=== PATIENT | female | born 1955 | race Caucasian/White ===

== ENCOUNTER 2017-05-10 09:04 | Day surgery (SDC) | payer OTHER ==
[2017-05-10] VITALS (13 sets, daily range): BP systolic 108–155; BP diastolic 50–70; PULSE 66–90; RESP 10–22; Ht 167.6 cm; Wt 135.1 kg
[~2017-05-10] VITALS: Ht 167.6 cm; Wt 135.1 kg
[~2017-05-10 09:04] MED LIST: CEFAZOLIN 1 GM/50 ML (PMX) 50 ML IVPB SCH; LEVO150T67 PO; [UNRECOGNIZED DRUG - REMARK]
[2017-05-10 10:04] LABS: ADD SCAN DIFF NO
[2017-05-10] MEDS ORDERED: LEVO150T67 PO (10:08)
[2017-05-10 10:10] LABS: BASOPHILS % 0.6 % (0.0-2.0); EOSINOPHILS # 0.3 10^3/ul (0.0-0.5); EOSINOPHILS % 4.2 % (0.0-7.0); HEMATOCRIT 34.6 % (37.0-47.0); HEMOGLOBIN 11.8 g/dl (12.0-16.0); LYMPHOCYTES # 1.4 10^3/ul (0.8-2.9); LYMPHOCYTES % 19.9 % (15.0-51.0); MEAN CORPUSCULAR HEMOGLOBIN 32.2 pg (29.0-33.0); MEAN CORPUSCULAR HGB CONC 34.1 g/dl (32.0-37.0); MEAN CORPUSCULAR VOLUME 94.5 fl (82.0-101.0); MEAN PLATELET VOLUME 9.3 fl (7.4-10.4); MONOCYTE # 0.3 10^3/ul (0.3-0.9); MONOCYTES % 4.5 % (0.0-11.0); NEUTROPHILS % 70.4 % (39.0-77.0); PLATELET COUNT 211 10^3/UL (140-415); RED BLOOD COUNT 3.66 10^6/ul (4.20-5.40); RED CELL DISTRIBUTION WIDTH 13.3 % (11.5-14.5); WHITE BLOOD COUNT 7.1 10^3/ul (4.8-10.8)
[2017-05-10] MEDS ORDERED: DULO60CA6 PO (10:14)
[2017-05-10] MEDS ORDERED: GABA-526 PO (10:14)
[2017-05-10] MEDS ORDERED: DULO30CA45 PO (10:14)
[2017-05-10] MEDS ORDERED: CLON0.5T4 PO (10:15)
[2017-05-10] MEDS ORDERED: TRAM-40 PO (10:16)
[2017-05-10] MEDS ORDERED: TRAZ100T15 PO (10:16)
[2017-05-10] MEDS ORDERED: MULTI PO (10:16)
[2017-05-10] MEDS ORDERED: OXYB5TAB7 PO (10:16)
[2017-05-10] MEDS ORDERED: CHOL100062 PO (10:17)
[2017-05-10] MEDS ORDERED: MELA1TAB15 PO (10:17)
[2017-05-10] MEDS ORDERED: LACT1CAP47 PO (10:17)
[2017-05-10 10:36] LABS: INR 0.94; PROTIME 12.6 Sec (12.2-14.2)
[2017-05-10 10:37] LABS: PARTIAL THROMBOPLASTIN TIME 31.5 Sec (25.0-35.0)
[2017-05-10 10:43] LABS: ALBUMIN 4.5 g/dl (3.3-4.9); ALBUMIN/GLOBULIN RATIO 1.8; BILIRUBIN,INDIRECT 0.1 mg/dl (0-1.1); BILIRUBIN,TOTAL 0.1 mg/dl (0.2-1.3)
[2017-05-10 10:50] LABS: POTASSIUM 3.8 mmol/L (3.5-5.1)
[2017-05-10 10:51] LABS: CALCIUM 9.3 mg/dl (8.4-10.2); CREATININE 0.86 mg/dl (0.44-1.00)
[2017-05-10] MEDS ORDERED: IOHEXOL 300MG/ML 30 ML BTL ONE (12:24)
--- NOTE | 2017-05-10 12:41 | HP ---
DATE OF ADMISSION: 05/10/2017 HISTORY OF PRESENT ILLNESS: Joan Vang is a 61-year-old female who noted gross hematuria. The p atvania subsequently underwent a CT scan of the abdomen and pelvis in February which demonstrated a 6 mm and 4 mm stone in the distal left ureter. A ureteral stent was then inserted on an emergency basis . Subsequently, the patient presented to our office for definitive treatment. The patient now pres ents for cystoscopy, removal of left ureteral stent, left ureteroscopy with endoscopic holmium laser lithotripsy, reinsertion of left ureteral stent. PAST MEDICAL HISTORY: Morbid obesity, goiter, depression, fibromyalgia, hypothyroidism and anemia. PAST SURGICAL HISTORY: Status post insertion of left ureteral stent. ALLERGIES: NONE. MEDICATIONS: 1. Gabapentin. 2. Levothyroxine. 3. Cymbalta. 4. Clonazepam. 3. Trazodone. 4. Tramadol. 5. Oxybutynin. PHYSICAL EXAMINATION: GENERAL: Morbidly obese female. LUNGS: Good breath sounds bilaterally. HEART: Regular rate and rhythm. ABDOMEN: Soft, nondistended, nontender without masses. BACK: No CVA tenderness. No masses. IMPRESSION: A 3 and 7 mm distal left ureteral calculi, status post insertion of stent now presents for exchange of this and ureteroscopic stone extraction with endoscopic laser lithotripsy. She has been cleared by hematology and cardiology. How the procedure is performed as well as potential risk s and complications and staged intervention has been reviewed previously as well as today with the p atvania and . The potential complications including anesthetic risks including DVT, PE, AL, s troke as well as an increased risk due to her morbid obesity was discussed, but potential complicati ons associated with the surgery in and of itself including inability to remove the stone, encrustati on of the stent, infection, bleeding, staged intervention, ureteral disruption, ureteral perforation , migration of stone, requiring secondary procedure and the importance of removal of the stent withi n a timely period of time (3 months) so as to avoid complications and encrustation have all been rev iewed. They are aware of the above and would like to proceed. All questions have been answered. Dictated By: ANJELICA OJEDA/NTS Conf#: [id number] DID#: [id number]
[2017-05-10] MEDS ORDERED: MIDAZOLAM 1 MG/ML 2 ML INJ ONE (12:52)
[2017-05-10] MEDS ORDERED: PROPOFOL 20 ML ONE (13:52)
[2017-05-10] MEDS ORDERED: LIDOCAINE 2% (SDV) 5 ML INJ ONE (13:52)
[2017-05-10] MEDS ORDERED: CEFAZOLIN 1 GM INJ ONE (13:52)
[2017-05-10] MEDS ORDERED: METOCLOPRAMIDE 10 MG INJ ONE (13:53)
[2017-05-10] MEDS ORDERED: ONDANSETRON 4 MG INJ ONE (13:53)
[2017-05-10] MEDS ORDERED: ONDANSETRON 4 MG INJ IV PRN (14:00)
[2017-05-10] MEDS ORDERED: FENTAnyl 50 MCG/ML VIAL IV PRN (14:00)
[2017-05-10] MEDS ORDERED: MEPERIDINE 25 MG INJ IV PRN (14:00)
--- NOTE | 2017-05-10 14:07 | PDOCDIS ---
Discharge Instructions CONDITION Patient Condition: Good HOME CARE INSTRUCTIONS: Diet Instructions: Regular ACTIVITY: Activity Restrictions: Slowly Increase Activity FOLLOW UP/APPOINTMENTS Appointments 1 -2 weeks for emoval of stent, patient to call for date and time REFERRALS Other Referrals dc to home when awake and stable, does not need to void before dc SCHOOL/WORK RELEASE May return to School/Work on: May 24, 2017 ANJELICA MEHTA May 10, 2017 14:07
--- NOTE | 2017-05-10 14:31 | OPR ---
DATE OF OPERATION: 05/10/2017 BRIEF HISTORY: Joan Vang is a 61-year-old female who presented with a ureteral stent secondary to two obstructing distal ureteral calculi. She presented today for exchange of left ureteral stent , ureteroscopic stone extraction. PREOPERATIVE DIAGNOSIS: Left ureteral stone. POSTOPERATIVE DIAGNOSIS: Two distal left ureteral stones. OPERATION PERFORMED: Removal of left ureteral stent, left retrograde pyelogram, ureteroscopic stone extraction with endoscopic holmium laser lithotripsy, reinsertion left ureteral stent. SURGEON: Anjelica Pop MD FINDINGS: Impacted distal left ureteral stone, encrusted distal stent. BLOOD USAGE: None. DRAINS: A 24 cm 6-Iraqi double-J ureteral stent. ESTIMATED BLOOD LOSS: Negligible. SPECIMEN: Stone. COMPLICATIONS: None. ANESTHESIA: General. DESCRIPTION OF PROCEDURE: The patient was brought into the operating room and placed on the operati ng room table in a gentle fashion. Of note, the patient is markedly morbidly obese. She was preppe d and draped in the usual fashion with sequential compression devices being applied. Appropriate pr essure points were padded, and she received 2 grams of Ancef preoperatively. The patient states floyd t she has multiple allergies and no allergy to penicillin products. A KUB was obtained which demons trated the previously placed stent to be in proper anatomical position. Poor visualization with flu oroscopy was noted secondary to morbid obesity. Rigid cystoscopy was undertaken with a 12-degree, 3 0-degree lens. Protruding from the left ureteral orifice was an encrusted stent. No other abnormal ities could be appreciated. The stent was brought up to the introitus of the vagina, and then the d istal aspect of the stent was cut which then allowed for a 0.35 Amplatz wire to be placed up to the level of the renal pelvis. A retrograde pyelogram was undertaken. Poor visualization of the distal ureter was noted. Possible left lower pole stone is appreciated. Contrast was noted to be instill ed and preserved in the collecting system. Due to the above findings and the patient's history, ure teroscopy was undertaken without any difficulty. The semirigid ureteroscope was inserted into the d istal ureter where 2 impacted stones were identified, fragmented with a 365 micron holmium fiber, an d then the fragments were removed with a nitinol tipless 1.9 Iraqi basket. This was repetitively p erformed until no further stone burden could be appreciated. Repeat ureteroscopy was undertaken wit h the ureteroscopy being taken proximal to this region revealing no further stone burden could be no tabatha. Due to edema, a 24 cm 6-Iraqi double-J ureteral stent was inserted. The proximal aspect coiling wi thin the renal pelvis and the distal aspect coiling within the bladder. Tied to the distal end was at a tapered string. The positioning was confirmed with direct vision fluoroscopy and a KUB. Her b ladder was emptied, and she was transferred to recovery room in stable condition. Due to the patien t's history and above findings, she will be placed on antibiotic therapy. She was given a prescript ion for Augmentin 500 mg p.o. b.i.d. for 5 days' time, dispense #10. She will follow up in the off ce in 1 to 2 weeks for a cystoscopy and stent removal. Of note, the patient is on tramadol. Should she require additional pain control, we will consult with her prescribing physician. All questions have been answered to her and her significant other. Dictated By: ANJELICA OJEDA/NTS Conf#: [id number] DID#: [id number]
--- NOTE | 2017-05-11 15:44 | RADRPT ---
PROCEDURE: Intraoperative imaging of the abdomen and pelvis with fluoroscopy. CLINICAL INDICATION: Abdominal pain. Intraoperative. TECHNIQUE: 3 images of the abdomen and pelvis were obtained in the operating room with an image in tensifier. No radiologist was in attendance. 0.2 minutes of fluoroscopy time was used. COMPARISON: No prior study is available for comparison. FINDINGS: Images demonstrate contrast in the left renal pelvis and a double pigtail left ureteral stent in sat isfactory position. IMPRESSION: 1. Satisfactory intraoperative imaging of the abdomen and pelvis. RPTAT: QQ .Silas Clinton MD, MD Date Time Electronically viewed and signed by .Silas Clinton MD, MD on 05/11/2017 15:44 .R/
== END 2017-05-10 17:19 | disposition home or self-care (01) ==
LOC: SDS 09:04
PROVIDERS: ATTEND Urology
DX: N20.0 Calculus of kidney (principal); I10 Essential (primary) hypertension; E66.01 Morbid (severe) obesity due to excess calories; Z68.42 Body mass index [BMI] 45.0-49.9, adult
CPT/HCPCS: 52356; 74420; 80053; 85025; 85610; 85651; 85730; 88300; J0690; J2250; J2405; J2765; J3010; Q9967; Z7512; Z7610

== ENCOUNTER 2017-07-26 17:50 | Emergency (ER) | payer OTHER ==
[~2017-07-26] VITALS: Ht 167.6 cm; Wt 134.0 kg
[~2017-07-26 17:50] MED LIST changes: -CEFAZOLIN 1 GM/50 ML (PMX) 50 ML IVPB SCH; +CHOL100062 PO; +CLON0.5T4 PO; +DULO30CA45 PO; +DULO60CA6 PO; +GABA-526 PO; +LACT1CAP47 PO; +MELA1TAB15 PO; +MULTI PO; +OXYB5TAB7 PO; +TRAM-40 PO; +TRAZ100T15 PO; -[UNRECOGNIZED DRUG - REMARK]
[2017-07-26 17:54] VITALS: Ht 167.6 cm; Wt 134.0 kg
--- NOTE | 2017-07-26 19:18 | ERD ---
ER Documentation Chief Complaint Date/Time DATE: 07/26/17 TIME: 19:15 Chief Complaint SENT BY PMD TO R/O DVT R LOWER LEG AND KNEE SWELLING HPI Patient is a 62-year-old female who presents with gradual onset, constant, mild to moderate right medial leg swelling for 1 week. She states that she has not had any trauma and that she has no pain in her leg. She feels that the swelling is just superior to her right medial knee. She also notes a discoloration to a patch of skin on the medial right calf that gets darker over the course of the day. She went to see her PMD and was sent to the ER to rule out DVT. ROS All systems reviewed and are negative except as per history of present illness. Medications Home Meds Reported Medications Melatonin (Melatonin) 1 Mg Tablet, 6 MG PO HS, TAB 05/10/17 Lactobacillus Acidophilus (Probiotic) 1 Each Capsule, 1 CAP PO DAILY, CAP 05/10/17 Cholecalciferol* (Vitamin D3*) 1,000 Unit Tablet, 1000 UNIT PO DAILY, TAB 05/10/17 Multivitamins* (Theragran*) 1 Tab Tab, 1 TAB PO DAILY, TAB 05/10/17 Oxybutynin Chloride* (Ditropan*) 5 Mg Tablet, 5 MG PO DAILY, TAB 05/10/17 Tramadol Hcl* (Ultram*) 50 Mg Tablet, 50 MG PO DAILY Y for PAIN, TAB 05/10/17 Trazodone Hcl* (Trazodone Hcl*) 100 Mg Tablet, 100 MG PO QHS, #30 TAB 05/10/17 Clonazepam* (Clonazepam*) 0.5 Mg Tablet, 0.5 MG PO Q8H Y for ANXIETY, TAB 05/10/17 Gabapentin* (Gabapentin*) 600 Mg Tablet, 600 MG PO TID, #90 TAB 05/10/17 Duloxetine Hcl* (Cymbalta*) 60 Mg Capsule.dr, 60 MG PO QAM, CAP 05/10/17 Duloxetine Hcl* (Cymbalta*) 30 Mg Capsule.dr, 30 MG PO QPM, CAP 05/10/17 Levothyroxine Sodium* (Levothyroxine Sodium*) 150 Mcg Tablet, 150 MCG PO BEFORE BREAKFAST, #30 TAB 05/10/17 Allergies Allergies: Coded Allergies: diclofenac (Verified Allergy, Severe, 05/10/17) meloxicam (Verified Allergy, Severe, 05/10/17) pregabalin (Verified Allergy, Severe, 05/10/17) Sulfa (Sulfonamide Antibiotics) (Unverified Allergy, Mild, 10/21/14) loratadine (Unverified Allergy, Mild, 10/21/14) PMhx/Soc Past medical history: Graves' disease status post radioactive ablation, fibromyalgia, depression Past surgical history: Left knee replacement, tubal ligation Social history: Denies tobacco or alcohol History of Surgery: Yes (TONSILLECTOMY, BTL,L KNEE OPA, R FOOT SX, URETERAL STENT) Anesthesia Reaction: Yes (N/V) Hx Neurological Disorder: Yes (FIBROMYALGIA) Hx Respiratory Disorders: Yes (SLEEP APNEA) Hx Cardiac Disorders: Yes Hx Psychiatric Problems: Yes (DEPRESSION) Hx Miscellaneous Medical Probl: Yes (VERTIGO) Hx Alcohol Use: No Hx Substance Use: No Hx Tobacco Use: No FmHx Family History: No coronary disease, No diabetes Physical Exam Vitals Vital Signs Date Time Temp Pulse Resp B/P Pulse Ox O2 Delivery O2 Flow Rate FiO2 07/26/17 17:54 98.1 87 20 150/58 96 Physical Exam Const: Alert, no acute distress Head: Atraumatic Eyes: Normal Conjunctiva, No pallor, no icterus ENT: Normal External Ears, Nose and Mouth. Neck: Full range of motion..~ No meningismus. Resp: Clear to auscultation bilaterally Cardio: Regular rate and rhythm, no murmurs Abd: Soft, non tender, non distended. Obese. Skin: No petechiae or rashes Back: No midline or flank tenderness Ext: No cyanosis. Nonpitting edema bilateral legs, slightly more pronounced to right leg than left leg. No tenderness, no joint effusion. 5 cm in diameter patch of hyperpigmented skin to right medial calf. No warmth or erythema. Neur: Awake and alert Psych: Normal Mood and Affect Procedures/MDM Patient is a 62-year-old female with asymptomatic right leg swelling. There is no evidence of injury or infection. She has no pain. A ultrasound shows no evidence of DVT. The patient was advised to follow-up with her PMD if the symptoms persist for repeat ultrasound in 1 week. Her exam is not suggestive of an alternative diagnosis. Departure Diagnosis: Primary Impression: Right leg swelling Condition: Good BUDDY MASSEY MD Jul 26, 2017 19:18
--- NOTE | 2017-07-26 21:11 | RADRPT ---
PROCEDURE: US DVT. CLINICAL INDICATION: Right lower extremity edema. TECHNIQUE: Multiple longitudinal and transverse images of the right lower extremity veins were obt ained with andre scale and color Doppler imaging. 2D grayscale measurements with compression, color Doppler flow, and augmentation was performed. COMPARISON: No prior studies are available for comparison. FINDINGS: The right common femoral, superficial femoral and popliteal veins are normally compressible througho ut. Color flow demonstrates normal filling of the vessel. Normal waveforms are visualized and ther e is normal response to augmentation. IMPRESSION: 1. No evidence of a deep vein thrombosis involving the right lower extremity. RPTAT: HMVK .Haja Jarrett MD, MD Date Time Electronically viewed and signed by .Haja Jarrett MD, MD on 07/26/2017 21:11 .K/
== END 2017-07-26 21:59 | disposition home or self-care (01) ==
LOC: FTE 17:50
DX: M79.89 Other specified soft tissue disorders (principal); Z96.652 Presence of left artificial knee joint
CPT/HCPCS: 93971; Z7502

== ENCOUNTER 2017-10-23 15:39 | Emergency (ER) | payer OTHER ==
[~2017-10-23] VITALS: Wt 134.7 kg
--- NOTE | 2017-10-23 16:30 | ERD ---
ER Documentation Chief Complaint Chief Complaint ON AND OFF LEFT FLANK PAIN X3 WEEKS, HX OF KIDNEY STONE/STENT HPI The patient is a 62-year-old male, stenting to the ER because of left flank pain intermittently for the last 4 weeks, had similar symptoms previously, worse with movement. Denies fever, chills, neck pain, chest pain, dyspnea, vomiting, dysuria, diarrhea, constipation. She does not smoke nor drink Medical history: History of kidney stone, hypothyroidism, fibromyalgia, depression Surgical history: Tubal ligation ROS All systems reviewed and are negative except as per history of present illness. Medications Home Meds Active Scripts Tramadol HCl (Tramadol HCl) 50 Mg Tablet, 50 MG PO Q6, #20 TAB Prov:AYO LEAL MD 10/23/17 Reported Medications Melatonin (Melatonin) 1 Mg Tablet, 6 MG PO HS, TAB 05/10/17 Lactobacillus Acidophilus (Probiotic) 1 Each Capsule, 1 CAP PO DAILY, CAP 05/10/17 Cholecalciferol* (Vitamin D3*) 1,000 Unit Tablet, 1000 UNIT PO DAILY, TAB 05/10/17 Multivitamins* (Theragran*) 1 Tab Tab, 1 TAB PO DAILY, TAB 05/10/17 Oxybutynin Chloride* (Ditropan*) 5 Mg Tablet, 5 MG PO DAILY, TAB 05/10/17 Tramadol Hcl* (Ultram*) 50 Mg Tablet, 50 MG PO DAILY Y for PAIN, TAB 05/10/17 Trazodone Hcl* (Trazodone Hcl*) 100 Mg Tablet, 100 MG PO QHS, #30 TAB 05/10/17 Clonazepam* (Clonazepam*) 0.5 Mg Tablet, 0.5 MG PO Q8H Y for ANXIETY, TAB 05/10/17 Gabapentin* (Gabapentin*) 600 Mg Tablet, 600 MG PO TID, #90 TAB 05/10/17 Duloxetine Hcl* (Cymbalta*) 60 Mg Capsule.dr, 60 MG PO QAM, CAP 05/10/17 Duloxetine Hcl* (Cymbalta*) 30 Mg Capsule.dr, 30 MG PO QPM, CAP 05/10/17 Levothyroxine Sodium* (Levothyroxine Sodium*) 150 Mcg Tablet, 150 MCG PO BEFORE BREAKFAST, #30 TAB 05/10/17 Allergies Allergies: Coded Allergies: diclofenac (Verified Allergy, Severe, 05/10/17) meloxicam (Verified Allergy, Severe, 05/10/17) pregabalin (Verified Allergy, Severe, 05/10/17) Sulfa (Sulfonamide Antibiotics) (Unverified Allergy, Mild, 10/21/14) loratadine (Unverified Allergy, Mild, 10/21/14) PMhx/Soc History of Surgery: Yes (TUBAL LIGATION; TONSILS; LEFT-KNEE) Anesthesia Reaction: No Hx Neurological Disorder: No Hx Respiratory Disorders: No Hx Cardiac Disorders: No Hx Psychiatric Problems: Yes (DEPRESSION) Hx Miscellaneous Medical Probl: Yes (THYROID) Hx Alcohol Use: No Hx Substance Use: No Hx Tobacco Use: No Physical Exam Vitals Vital Signs Date Time Temp Pulse Resp B/P Pulse Ox O2 Delivery O2 Flow Rate FiO2 10/23/17 20:21 78 17 130/78 100 Room Air 10/23/17 17:53 68 17 148/64 98 Room Air 10/23/17 15:45 97.5 82 17 137/62 97 Physical Exam Const: No acute distress. Head: Atraumatic. Eyes: Normal Conjunctiva. ENT: Normal External Ears, Nose and Mouth. Neck: Full range of motion. No meningismus. Resp: Clear to auscultation bilaterally. Cardio: Regular rate and rhythm. Abd: Soft, non distended, normal bowel sounds, mild left flank and left lumbar tenderness, no right lower quadrant, right upper quadrant epigastric , rigidity, rebound or CVA tenderness Skin: No petechiae or rashes. Back: No midline or flank tenderness. Ext: No cyanosis, or edema. Neur: Awake and alert. No focal deficit Psych: Normal Mood and Affect. Result Diagram: 10/23/175 10/23/17 165 Results 24 hrs Laboratory Tests Test 10/23/17 16:55 10/23/17 17:00 10/23/17 19:44 White Blood Count 8.410^3/ul Red Blood Count 3.9010^6/ul Hemoglobin 12.0g/dl Hematocrit 34.8% Mean Corpuscular Volume 89.2fl Mean Corpuscular Hemoglobin 30.8pg Mean Corpuscular Hemoglobin Concent 34.5g/dl Red Cell Distribution Width 14.0% Platelet Count 48518^3/UL Mean Platelet Volume 9.7fl Neutrophils % 65.1% Lymphocytes % 23.0% Monocytes % 6.6% Eosinophils % 4.5% Basophils % 0.6% Nucleated Red Blood Cells % 0.0/100WBC Neutrophils # 5.410^3/ul Lymphocytes # 1.910^3/ul Monocytes # 0.610^3/ul Eosinophils # 0.410^3/ul Basophils # 0.110^3/ul Nucleated Red Blood Cells # 0.010^3/ul Sodium Level 144mmol/L Potassium Level 4.2mmol/L Chloride Level 107mmol/L Carbon Dioxide Level 26mmol/L Anion Gap 15 Blood Urea Nitrogen 19mg/dl Creatinine 0.77mg/dl Glucose Level 98mg/dl Calcium Level 9.1mg/dl Total Bilirubin 0.2mg/dl Direct Bilirubin 0.00mg/dl Indirect Bilirubin 0.2mg/dl Aspartate Amino Transf (AST/SGOT) 28IU/L Alanine Aminotransferase (ALT/SGPT) 42IU/L Alkaline Phosphatase 59IU/L Total Protein 6.9g/dl Albumin 3.9g/dl Globulin 3.00g/dl Albumin/Globulin Ratio 1.30 Lipase 59U/L Urine Color YELLOW Urine Clarity CLEAR Urine pH 5.0 Urine Specific [place] 1.020 Urine Ketones NEGATIVEmg/dL Urine Nitrite NEGATIVEmg/dL Urine Bilirubin NEGATIVEmg/dL Urine Urobilinogen NEGATIVEmg/dL Urine Leukocyte Esterase NEGATIVELeu/ul Urine Microscopic RBC 3/HPF Urine Microscopic WBC 1/HPF Urine Mucus FEW/HPF Urine Hemoglobin 1+mg/dL Urine Glucose NEGATIVEmg/dL Urine Total Protein NEGATIVEmg/dl Bedside Urine pH (LAB) 5.5 Bedside Urine Protein (LAB) Negative Bedside Urine Glucose (UA) Negative Bedside Urine Ketones (LAB) Negative Bedside Urine Blood Trace-lysed Bedside Urine Nitrite (LAB) Negative Bedside Urine Leukocyte Esterase (L Negative Current Medications Medications (Trade) Dose Ordered Sig/[place] Route PRN Reason Start Time Stop Time Status Last Admin Dose Admin Morphine Sulfate (morphine) 4 mg ONCE STAT IV 10/23/17 17:04 10/23/17 17:05 DC Ondansetron HCl (Zofran Inj) 4 mg ONCE STAT IV 10/23/17 17:04 10/23/17 17:05 DC Procedures/[place] [id number] Radiology Main Line: [phone] DIAGNOSTIC IMAGING REPORT Patient: RAMIREZ MARAVILLA : 1955 Age: 62 Sex: F MR #: [id number] [facility] #: [id number] DOS: 10/23/17 1632 Ordering MD: AYO LEAL MD Location: E/R Room/Bed: PROCEDURE: CT Abdomen and Pelvis without contrast. CLINICAL INDICATION: Left-sided flank pain. History of kidney stones. Previous stent. TECHNIQUE: CT scan of the abdomen and pelvis without contrast was performed on a multidetector high-resolution CT scanner. The patient was scanned without intravenous contrast. Coronal and sagittal reformatted images were obtained from the axial source images. Images were reviewed on a high-resolution PACS workstation. The total exam CTDI equals 23.34 mGy and the total exam DLP equals 1351.01 mGy-cm. One or the following dose reduction techniques were used: -Automated exposure control. -Adjustment of the mA and/or KV according to patient's size. -Use of iterative reconstruction technique. DICOM images are available. COMPARISON: None. FINDINGS: Lung Bases: Unremarkable. GI:. Unremarkable. Liver: There is a 2.5 cm subcapsular hypodense nodule in the right lobe of the liver. Gallbladder: The gallbladder is contracted. There are no filling defects and no biliary tree dilatation. Pancreas: Unremarkable. Spleen: Unremarkablel Adrenals: Unremarkable. Kidneys: There is bilateral nonobstructing nephrolithiasis. The largest is in the lower pole of the left kidney measuring 1.5 cm. There is no evidence of ureteral lithiasis or obstructive uropathy. Bladder: Unremarkable. Pelvic Organs: Unremarkable. Skeleton: Normal for age. Other: N/A IMPRESSION: 1. 2.5 cm subcapsular hypodense nodule in the right lobe of the liver. This is likely a cyst. 2. Bilateral nephrolithiasis without evidence of ureterectasis or obstructive uropathy. 3. Slight fat stranding in the upper mid mesentery. This may be etiopathic. 4. Appendix not visualized. There are no secondary signs of acute appendicitis. 5. No evidence of a mass, lymphadenopathy or acute inflammatory process. RPTAT: AACC Physician Sofia Date Time Electronically viewed and signed by Physician Sofia on 10/23/2017 17: 47 JH/ CC: AYO LEAL MD MEDICAL MAKING DECISION: The patient is a 62-year-old female, presenting to the ER because of recurrent flank pain of unclear etiology, most likely musculoskeletal in origin. She was treated with morphine 4 mg IV for pain, Zofran 4 mg IV for nausea with good response. The differential diagnoses considered include but are not limited to cholelithiasis, cholecystitis, cystitis, pancreatitis, hepatitis, gastritis, peptic ulcer disease, gastric ulcer, appendicitis, diverticulitis, cholangitis, choledocholithiasis, partial small bowel obstruction. Departure Diagnosis: Primary Impression: Flank pain Condition: Good Comments She was discharged with Ultram The patient's blood pressure was elevated (>120/80) but appears stable without evidence of hypertension emergency or urgency. The patient was counseled about the risks of hypertension and urged to pursue outpatient monitoring and therapy within a week with their primary care physician. I discussed the findings with the patient. I advised the patient to follow-up with the primary physician in about 1-2 days, sooner if needed and return if any concern. Disclaimer: Inadvertent spelling and grammatical errors are likely due to EHR/ dictation software use and do not reflect on the overall quality of patient care. Also, please note that the electronic time recorded on this note does not necessarily reflect the actual time of the patient encounter. AYO LEAL MD Oct 23, 2017 16:30
[2017-10-23] MEDS ORDERED: ONDANSETRON 4 MG INJ IV STA (17:04)
[2017-10-23] MEDS ORDERED: morphine 4 MG/ML VIAL IV STA (17:04)
[2017-10-23 17:15] LABS: BASOPHIL # 0.1 10^3/ul (0.0-0.1); BASOPHILS % 0.6 % (0.0-2.0); EOSINOPHILS # 0.4 10^3/ul (0.0-0.5); EOSINOPHILS % 4.5 % (0.0-7.0); HEMATOCRIT 34.8 % (37.0-47.0); LYMPHOCYTES # 1.9 10^3/ul (0.8-2.9); MEAN CORPUSCULAR HEMOGLOBIN 30.8 pg (29.0-33.0); MEAN CORPUSCULAR HGB CONC 34.5 g/dl (32.0-37.0); MEAN CORPUSCULAR VOLUME 89.2 fl (82.0-101.0); MEAN PLATELET VOLUME 9.7 fl (7.4-10.4); MONOCYTE # 0.6 10^3/ul (0.3-0.9); MONOCYTES % 6.6 % (0.0-11.0); NEUTROPHIL # 5.4 10^3/ul (1.6-7.5); NEUTROPHILS % 65.1 % (39.0-77.0); PLATELET COUNT 220 10^3/UL (140-415); WHITE BLOOD COUNT 8.4 10^3/ul (4.8-10.8)
[2017-10-23 17:34] LABS: ALBUMIN 3.9 g/dl (3.3-4.9); ALBUMIN/GLOBULIN RATIO 1.3; BILIRUBIN,INDIRECT 0.2 mg/dl (0-1.1); BILIRUBIN,TOTAL 0.2 mg/dl (0.2-1.3); CALCIUM 9.1 mg/dl (8.4-10.2); CREATININE 0.77 mg/dl (0.44-1.00); POTASSIUM 4.2 mmol/L (3.5-5.1); TOTAL PROTEIN 6.9 g/dl (6.1-8.1)
--- NOTE | 2017-10-23 17:47 | RADRPT ---
PROCEDURE: CT Abdomen and Pelvis without contrast. CLINICAL INDICATION: Left-sided flank pain. History of kidney stones. Previous stent. TECHNIQUE: CT scan of the abdomen and pelvis without contrast was performed on a multidetector hig h-resolution CT scanner. The patient was scanned without intravenous contrast. Coronal and sagittal reformatted images were obtained from the axial source images. Images were reviewed on a high-resol [employer] PACS workstation. The total exam CTDI equals 23.34 mGy and the total exam DLP equals 1351.01 m Gy-cm. One or the following dose reduction techniques were used: -Automated exposure control. -Adjustment of the mA and/or KV according to patient's size. -Use of iterative reconstruction technique. DICOM images are available. COMPARISON: None. FINDINGS: Lung Bases: Unremarkable. GI:. Unremarkable. Liver: There is a 2.5 cm subcapsular hypodense nodule in the right lobe of the liver. Gallbladder: The gallbladder is contracted. There are no filling defects and no biliary tree dilatat ion. Pancreas: Unremarkable. Spleen: Unremarkablel Adrenals: Unremarkable. Kidneys: There is bilateral nonobstructing nephrolithiasis. The largest is in the lower pole of the left kidney measuring 1.5 cm. There is no evidence of ureteral lithiasis or obstructive uropathy. Bladder: Unremarkable. Pelvic Organs: Unremarkable. Skeleton: Normal for age. Other: N/A IMPRESSION: 1. 2.5 cm subcapsular hypodense nodule in the right lobe of the liver. This is likely a cyst. 2. Bilateral nephrolithiasis without evidence of ureterectasis or obstructive uropathy. 3. Slight fat stranding in the upper mid mesentery. This may be etiopathic. 4. Appendix not visualized. There are no secondary signs of acute appendicitis. 5. No evidence of a mass, lymphadenopathy or acute inflammatory process. RPTAT: AACC Physician Sofia Date Time Electronically viewed and signed by Physician Sofia on 10/23/2017 17:47 /
[2017-10-23 19:37] LABS: ADD UMIC YES; UR ASCORBIC ACID NEGATIVE (NEGATIVE); UR BILIRUBIN (Dip) NEGATIVE (NEGATIVE); UR BLOOD (Dip) 1+ mg/dL (NEGATIVE); UR CLARITY CLEAR (CLEAR); UR COLOR YELLOW (YELLOW); UR GLUCOSE (Dip) NEGATIVE (NEGATIVE); UR KETONES (Dip) NEGATIVE (NEGATIVE); UR LEUKOCYTE ESTERASE (Dip) NEGATIVE Leu/ul (NEGATIVE); UR MUCUS FEW /HPF (NONE SEEN); UR NITRITE (Dip) NEGATIVE (NEGATIVE); UR RBC 3 /HPF (0-5); UR TOTAL PROTEIN (Dip) NEGATIVE (NEGATIVE); UR UROBILINOGEN (Dip) NEGATIVE (NEGATIVE)
[2017-10-23 19:45] LABS: URINE BLOOD (Dip) POC Trace-lysed (NEGATIVE)
[2017-10-23] MEDS ORDERED: TRAM50TA2 PO (20:01)
[2017-10-23 20:21] VITALS: BP 130/78; PULSE 78; RESP 17
== END 2017-10-23 20:26 | disposition home or self-care (01) ==
LOC: E/R 15:39
DX: M54.5 Low back pain (principal); E03.9 Hypothyroidism, unspecified
CPT/HCPCS: 36415; 74176; 80053; 81001; 83690; 85025; Z7502; 81003

== ENCOUNTER 2017-12-14 12:34 | Day surgery (SDC) | END 2017-12-14 15:55 | disposition home or self-care (01) ==

== ENCOUNTER 2018-05-30 14:54 | Emergency (ER) | END 2018-05-30 21:01 | disposition home or self-care (01) ==

== ENCOUNTER 2018-11-16 14:04 | Emergency (ER) | END 2018-11-16 16:48 | disposition home or self-care (01) ==